=== PATIENT | male | born 1985 | race Caucasian/White ===

== ENCOUNTER 2017-07-16 23:35 | Emergency (ER) | payer MEDICAID ==
[~2017-07-16] VITALS: Ht 182.9 cm; Wt 83.9 kg
--- NOTE | 2017-07-16 23:40 | NUR ---
Brought in by [facility] Officer in custody for medical clearance and blood alcohol draw. Patient to ER hallway for evaluation. Officers remain at chairside. Report given to APRYL Pugh.
[2017-07-16 23:41] VITALS: BP_SYST 135
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
--- NOTE | 2017-07-17 00:16 | NUR ---
Written and verbal consent obtained from patient for blood alcohol, name and verified by patient. Disinfected patient's skin with iodine that did not contain alcohol or other volatile organic compound. Collected the blood from the subject named by venipuncture, in the presence of Officer Diya number [id number]. Used a sterile, dry hypodermic needle and dry vacuum blood collection. The dry vacuum blood collection was supplied by the officer named above. Withdrew a specimen of blood from right AC of the subject named above. Inverted the blood tube several times to ensure that the preservative and anticoagulant were thoroughly mixed in the blood specimen. I initialed the blood tube label for identification. The labeled blood tube was handed directly to the Officer named above. The blood tube stopper remained in place while I had possession of the blood tube. The Officer placed tube into envelope and sealed it in my presence. Envelope initialed by myself and Officer named above. Patient tolerated well, bandage applied, and bleeding controlled.
[2017-07-17 00:55] VITALS: BP_SYST 133
--- NOTE | 2017-07-17 00:55 | NUR ---
ER Dr. Donovan at bedside examining patient.
--- NOTE | 2017-07-17 00:56 | NUR ---
Patient given written and verbal discharge instructions and verbalizes understanding. ER MD discussed with patient the results and treatment provided. Patient in stable condition. ID arm band removed. Patient educated on pain management and to follow up with PMD. Pain Scale 0/10. Opportunity for questions provided and answered. Patient AAOx4, ambulatory with steady gait. Patient in handcuffs, escorted out of ER bay with officer next to patient. Patient care endorsed to officers.
== END 2017-07-17 00:55 ==
LOC: SED 23:35
DX: Z04.1 Encounter for examination and observation following transport accident (principal); J45.909 Unspecified asthma, uncomplicated; Z88.0 Allergy status to penicillin; V49.9XXA Car occupant (driver) (passenger) injured in unspecified traffic accident, initial encounter; Y93.89 Activity, other specified; Y92.89 Other specified places as the place of occurrence of the external cause; Y99.8 Other external cause status
CPT/HCPCS: 99283; J7030